=== PATIENT | male | born 1950 | race Caucasian/White ===

== ENCOUNTER 2023-05-10 10:48 | Inpatient (IN) | payer OTHER ==
[~2023-05-10] VITALS: Ht 175.3 cm; Wt 90.3 kg
[2023-05-10] MEDS ORDERED: PRAV20 PO (11:03)
[2023-05-10] MEDS ORDERED: Ventolin/Prove6.7 GM INH (11:04)
[2023-05-10] MEDS ORDERED: APAP500 MG PO (11:04)
[2023-05-10] MEDS ORDERED: FLUO60T (11:04)
[2023-05-10] MEDS ORDERED: TERA5 PO (11:05)
[2023-05-10] MEDS ORDERED: MAGNESIUM OXID500 MG PO (11:05)
[2023-05-10] MEDS ORDERED: Amlodipine Besy10 MG PO (11:05)
[2023-05-10 12:00] LABS: BASOPHILS ABSOLUTE AUTO 0.04 K/mm3 (0.00-0.23); BASOPHILS PERCENT AUTO 0 % (0-2); EOSINOPHILS ABSOLUTE AUTO 0.21 K/mm3 (0.00-0.68); EOSINOPHILS PERCENT AUTO 2 % (0-6); Hematocrit 41.3 % (37.0-53.0); Hemoglobin 13.3 g/dL (13.5-17.5); IMMATURE GRAN ABSOLUTE AUTO 0.06 K/mm3 (0.00-0.10); IMMATURE GRAN PERCENT AUTO 0 % (0-1); LYMPHOCYTES ABSOLUTE AUTO 1.07 K/mm3 (0.84-5.20); LYMPHOCYTES PERCENT AUTO 8 % (21-46); MONOCYTES ABSOLUTE AUTO 1.28 K/mm3 (0.16-1.47); MONOCYTES PERCENT AUTO 9 % (4-13); Mean Corpuscular HGB Conc 32.2 g/dL (31.5-36.5); Mean Corpuscular Volume 90 fL (80-100); Mean Platelet Volume 10.8 fL (9.1-12.4); NEUTROPHILS ABSOLUTE AUTO 11.32 K/mm3 (1.96-9.15); NEUTROPHILS PERCENT AUTO 81 % (41-73); Platelet Count 258 K/mm3 (150-400); RDW Coefficient Variation 13.2 % (11.7-14.2); RDW Standard Deviation 44.3 fL (35.1-46.3); Red Blood Cell Count 4.58 M/mm3 (4.30-5.90); White Blood Cell Count 13.98 K/mm3 (4.00-11.30)
[2023-05-10 12:07] LABS: Influenza A, PCR NEGATIVE (NEGATIVE); Influenza B, PCR NEGATIVE (NEGATIVE); Resp Syncytial Virus, PCR NEGATIVE (NEGATIVE); SARS-Cov-2 (COVID-19) PCR, MMC NEGATIVE (NEGATIVE)
[2023-05-10 12:17] LABS: Albumin, Blood 3.3 g/dL (3.4-5.0); Albumin/Globulin Ratio 0.8 (0.8-1.8); Bilirubin, Total 0.5 mg/dL (0.1-1.0); Bun/Creatinine Ratio 19.7 (12.0-20.0); Calcium, Blood 8.3 mg/dL (8.5-10.1); Creatinine, Blood 0.97 mg/dL (0.60-1.20); Globulin, Blood 4.1 g/dL (2.2-4.0); Potassium, Blood 4.2 mmol/L (3.5-5.5); Total Protein, Blood 7.4 g/dL (6.4-8.2)
[2023-05-10 16:04] VITALS: BP 150/69
--- NOTE | 2023-05-10 18:26 | NUR ---
ADMISSION NOTE: PATIENT ARRIVES IN ROOM AT AROUND 1603 FROM ER FOR DX OF COPD EXACERBATION. PATIENT A&OX3-4. PLEASANT AND COOPERATIVE c CARE. SLIGHTLY LETHARGIC, VERY SOB WHEN ANSWER TO QUESTIONS. SIGNIFICANT OTHER ANSWER THE MAJORITY OF ADMISSION QUESTIONS, RX AND HX. MEDRIC AND SKIN ASSESSMENT c 2 RN VERIFIERS DONE. PATIENT DENIES CP/PRESSURE, N/V AND GENERALIZED PAIN. ON TELE, SR HR IN THE HIGH 80'S BPM. LUNGS COARSE, RONCHI AND TIGHT T/O TO AUSCULTATIONS. PATIENT HAS NON PRODUCTIVE, HARSH, BARKING COUGH. ON 7L OF O2 VIA OXYMIZER c SPO2 RANGES 89-93%. PLUS 2 PITTING EDEMA TO BLE'S. PIV TO RAC SALINE LOCKED. RECEIVED SCHEDULED MEDS, BREATHING TX ADMINISTERED BY RT. BED ALARM ON FOR SAFETY. CALL LIGHT IN REACH. PATIENT AND SIG OTHER EDUCATED ON NON SMOKING POLICY, RISK OF INJURY AND IGNITION SOURCES WHEN O2 IN USE. PATIENT AND SIG OTHER DENIES SMOKING AND STATED UNDERSTANDING.
[2023-05-10 20:11] VITALS: BP 129/60
[2023-05-10 20:28] LABS: PCO2 Arterial 86.6 mmHg (35-45); PO2 Arterial 56.7 mmHg (80-100); pH Blood Arterial 7.17 (7.35-7.45)
[2023-05-10 21:18] VITALS: BP 120/50
--- NOTE | 2023-05-10 21:28 | NUR ---
LATE ENTRY: FROM START OF SHIFT, PT DYSPNEIC W/INCREASED WOB & SATS DROPPING TO THE LOW 80'S ON 7 L'S O2 VIA OXIDIZER N/C. PLACED CALL TO RT, HERE IMMEDIATELY TO GIVE PT TREATMENT. PT ATTEMPTING TO GET OOB, THROWING LEGS OVER RAILING TO STAND TO URINATE. WITH STAF X 3, PT PUT BACK IN BED, PROVIDED URINAL. PT STATES HE "CAN NOT PEE UNLESS I'M STANDING". WITH ATTEMPT TO GET OOB PT'S SATS FELL INTO THE 70'S. RT PLACED PT ON BIPAP. PLACED CALL TO MD INFORMED OF ABOVE, ORDERS RECEIVED FOR F/C, BIPAP & ABG'S. 14 FR F/C PLACED EASILY WITH APPROX 400CCS OF DARK YELLOW URINE VISUALIZED IN TUBING. SECURED WITH STAT LOCK. ABG'S DRAWN BY RT, RESULTS: BASE EXCESS 2.3, PH 7.17,CO2 86.6 & ARTERIAL O2 56.7. MD NOTIFIED OF ABG RESULTS, ORDERS RECIEVED TO TRANSFER PT TO U1. CALLED REPORT TO SHWETA BARNETT AND PT TRANSFERRED VIA BED WITH ALL PERSONAL BELONGINGS, CHART & MEDS TO PCU 1. PT TRANSFERRED WITH RN, FULL STACK SOFTWARE DEVELOPER & RT.
--- NOTE | 2023-05-10 21:30 | NUR ---
FAMILY NOTIFICATION CALLED PT'S SON PER MEDICAL RECORD AND PROVIDED AN UPDATE R/T TRANSFER TO PCU AND PLAN FOR BIPAP WITH REPEAT ABG'S THIS SHIFT. PT'S SON (RIC) EXPRESSED APPRECIATION AND UNDERSTANDING AND STATED A PLAN TO DRIVE FROM [place] IN THE AM. PRIMARY RN SHWETA UPDATED THAT CALL HAD BEEN MADE.
[2023-05-10 21:37] LABS: Source, Urine Foley catheter
[2023-05-10 21:44] LABS: Bilirubin, Urine Neg (Neg); Blood, Urine Neg (Neg); Glucose Qualitative, Urine 2+ (Neg); Ketones, Urine Neg (Neg); Leukocyte Esterase, Urine Neg (Neg); Nitrite, Urine Neg (Neg); Protein, Urine 3+ (Neg); Specific Gravity, Urine 1.025 (1.003-1.022); Urobilinogen, Urine NORM (Normal)
[2023-05-10 21:58] LABS: Appearance, Urine Clear (Clear); Color, Urine Yellow (P-Yellow)
[2023-05-10 22:01] LABS: Bacteria Not Seen /hpf; Red Blood Cells, Urine Not Seen /hpf (0-2); Squamous Epithelial Cells Rare /hpf (Few); White Blood Cells, Urine 0-2 /hpf (0-5)
[2023-05-10 23:18] LABS: PO2 Arterial 72.3 mmHg (80-100)
[2023-05-10 23:20] LABS: pH Blood Arterial 7.15 (7.35-7.45)
[2023-05-10 23:43] VITALS: BP 129/60
[2023-05-11 00:07] LABS: PO2 Arterial 66.3 mmHg (80-100)
[2023-05-11 00:08] LABS: pH Blood Arterial 7.22 (7.35-7.45)
[2023-05-11 00:09] LABS: PCO2 Arterial 70.2 mmHg (35-45)
--- NOTE | 2023-05-11 00:30 | NUR ---
COMMUNICATION WITH FAMILY RECEIVED PHONE CALL FROM PT'S DAUGHTER (INGRID). ADVISED THAT THERE IS NO CONSENT IN THE CHART TO PROVIDE INFORMATION AT THIS TIME BUT THAT SHE WOULD BE ABLE TO RECEIVE UPDATES FROM HER BROTHER (RIC). SHE WAS AGREEABLE TO THIS PLAN. PROVIDED HER PHONE NUMBER IN CASE HER DAD WOULD BE ABLE TO CALL ON THE PHONE AND WOULD LIKE TO REACH HER: [phone] (CELL). HER PARTNER CHUY'S # IS: [phone]. PLACED ON THE CHART AND NOTIFIED THE PRIMARY RN ALESHIA.
[2023-05-11 03:12] VITALS: BP 144/72
[2023-05-11 03:17] LABS: PCO2 Arterial 68.8 mmHg (35-45); pH Blood Arterial 7.24 (7.35-7.45)
[2023-05-11 04:14] LABS: Hematocrit 40.2 % (37.0-53.0); Hemoglobin 12.4 g/dL (13.5-17.5); Mean Corpuscular HGB 28.5 pg (26.0-34.0); Mean Corpuscular HGB Conc 30.8 g/dL (31.5-36.5); Mean Corpuscular Volume 92 fL (80-100); Mean Platelet Volume 11.1 fL (9.1-12.4); Platelet Count 256 K/mm3 (150-400); RDW Coefficient Variation 13.2 % (11.7-14.2); RDW Standard Deviation 45.1 fL (35.1-46.3); Red Blood Cell Count 4.35 M/mm3 (4.30-5.90)
[2023-05-11 04:45] LABS: Albumin/Globulin Ratio 0.7 (0.8-1.8); Bilirubin, Total 0.3 mg/dL (0.1-1.0); Bun/Creatinine Ratio 20.4 (12.0-20.0); Calcium, Blood 8.4 mg/dL (8.5-10.1); Creatinine, Blood 1.13 mg/dL (0.60-1.20); Globulin, Blood 4.1 g/dL (2.2-4.0); Magnesium, Blood 2.1 mg/dL (1.6-2.4); Potassium, Blood 5.3 mmol/L (3.5-5.5); Total Protein, Blood 7.1 g/dL (6.4-8.2)
--- NOTE | 2023-05-11 06:46 | NUR ---
SHIFT SUMMARY PATIENT TRANSFERRED TO PCU 01 FROM [facility] FOR INCREASED O2 NEEDS AND WORK OF BREATHING. MOST RECENT ABG pH CRITICALLY LOW AT 7.24, CO2 68.8. PATIENT PLACED ON BIPAP, SETTINGS CURRENTLY 29/09 AT 55% FIO2. LUNG SOUNDS RONCHUS THROUGHOUT AND PATIENT TACHYPNIC. PATIENT IS LETHARGIC, DIFFICULT TO ASSESS PATIENT'S ORIENTATION LEVEL. VITAL SIGNS STABLE. PATIENT ASSESSED FOR IGNITION RISK. WILL CONTINUE TO MONITOR. CALL LIGHT WITHIN REACH.
[2023-05-11 07:28] VITALS: BP 143/64
--- NOTE | 2023-05-11 10:28 | NUR ---
FIRE IGNITION RISK ASSESSMENT PT ASSESSED FOR SMOKING AND FIRE IGNINTION RISK DEVEICES. PT REPORTS THAT HE IS A CURRENT SMOKER BUT ALSO REPORTED THAT HE DOES NOT HAVE ANY LIGHTERS OR IGNITION RISK DEVICES. PT REMINDED THAT [facility] IS A SMOKE FREE FACILITY AND THAT ANY VISITORS NEED TO LEAVE IGNITION RISK DEVICES IN THEIR VEHICLE. PT AGREED.
--- NOTE | 2023-05-11 10:57 | NUR ---
0900 PT TAKEN OFF OF BIPAP FOR MEDS AND 6L OXYMIZER APPLIED. PT RR AT 24, PT INSTRUCTED TO SLOW BREATHING AND TAKE DEEP BREATHS IN HIS NOSE AND OUT HIS MOUTH. PT SATS IN MID 80'S. PT SATS GRADUALLY INCREASED PT RR DECREASED. O2 INCREASED TO 8L. SATS IN THE LOW 90'S. PT REPORTS "IT IS EASIER SAID THAN DONE" REFFERING TO SLOWING HIS BREATHING. PT SATS REMAINING IN THE 90'S ON 8L OXYMIZER.
[2023-05-11 11:38] VITALS: BP 124/77
--- NOTE | 2023-05-11 12:26 | NUR ---
1000 PT SON AND DAUGHTER TO VISIT. SON INFORMED THIS RN THAT PT "IS A DRINKER. NEVER DOES NOT HAVE A BUDWIESER IN HIS HAND." SON EXPRESSED CONCERNS OF WITHDRAWLS. PT ASKED ABOUT DRINKING HABIT, PT REPORTS "I DO NOT DRINK ANYMORE. I TAKE THAT BACK, I HAVE A GLASS OF WINE HERE AND THERE." INFORMED, VIT B COMPLEX ORDERED.
--- NOTE | 2023-05-11 12:29 | NUR ---
PT CURRENTLY SITTING AT EDGE OF BED ON 8L OXYMIZER. SATS AT 94%. BIPAP ON STANBY. NO REPORT OF SOB AT THIS TIME. PT RR AT 18 AT THIS TIME. PT HAS FREQUENT COUGHING FITS. PT STATES THAT THE COUGHS ARE NORMAL FOR HIM.
--- NOTE | 2023-05-11 15:31 | NUR ---
1400 PT SATS AT 100% ON 8L OXYMIZER. PT O2 TITRATED TO 6L, SATS REMAIN STABLE IN 90'S. PT CONTINUES TO SIT AT EDGE OF BED, TOLERATING WELL.
[2023-05-11 17:12] VITALS: BP 120/106
--- NOTE | 2023-05-11 17:12 | NUR ---
SHIFT SUMMARY PT A/OX4 AND COOPERATIVE OF CARE. PT ABLE TO EXPRESS NEEDS AND CALLS APPROPIATE. PT ON BIPAP 29/09 50% AT SHIFT CHANGE THIS AM. PT PUT ON 8L OXYMIZER AT AROUND 0900 FOR PO MEDSAND TO GIVE PT A BREAK FROM BIPAP. PT TACHYPNEIC WHEN ON OXYMIZER AND SATS GRADUALLY INCREASED FROM 80'S TO 90'S WHEN O2 WAS INCREASED TO 8L AND PT INSTRUCTED TO SLOW BREATH AND DEEP BREATH. PT REMAINED ON 6-8L PXYMIZER THROUGHOUT SHIFT WHILE SITTING AT EOB. OTHER VSS THROUGHOUT SHIFT. PT REQUESTED NICOTINE PATCH, PATCH APPLIED PER ORDERS. WARNER REMAINED IN PLACE DRAINING TO GRAVITY, KOMAL URINE. NO REPORT OF CHEST PAIN/PRESSURE THROUGHOUT SHIFT. WHEN ASKED IF PT IS SOB HE RESPONDS "THAT IS HARD TO TELL SINCE I HAVE BEEN DEALING WITH THIS FOR A LONG TIME."
[2023-05-11 19:36] VITALS: BP 126/70
[2023-05-11 23:34] VITALS: BP 122/65
[2023-05-12 03:39] LABS: Hematocrit 38.9 % (37.0-53.0); Hemoglobin 12.2 g/dL (13.5-17.5); Mean Corpuscular HGB Conc 31.4 g/dL (31.5-36.5); Mean Corpuscular Volume 93 fL (80-100); Platelet Count 250 K/mm3 (150-400); RDW Coefficient Variation 13.2 % (11.7-14.2); RDW Standard Deviation 44.9 fL (35.1-46.3); White Blood Cell Count 17.02 K/mm3 (4.00-11.30)
[2023-05-12 04:42] LABS: Albumin/Globulin Ratio 0.8 (0.8-1.8); Bilirubin, Total 0.2 mg/dL (0.1-1.0); Bun/Creatinine Ratio 27.9 (12.0-20.0); Calcium, Blood 8.2 mg/dL (8.5-10.1); Creatinine, Blood 1.11 mg/dL (0.60-1.20); Potassium, Blood 5.1 mmol/L (3.5-5.5)
[2023-05-12 04:48] VITALS: BP 120/62
--- NOTE | 2023-05-12 05:26 | NUR ---
SHIFT SUMMARY A/OX3, FORGETFUL AT TIMES. COOPERATIVE WITH CARE. TELE SR 70-90S, DENIES CHEST PAIN/PRESSURE. PT COMPLIANT WITH BIPAP MOST OF THE NIGHT 27/09 30%, CURRENTLY SITTING UP AT EDGE OF BED ON 7L OXYMIZER. VSS, NO ACUTE CHANGES AT THIS TIME. BED IN LOWEST POSITION WITH CALL LIGHT IN REACH. WILL CONTINUE TO MONITOR AND REPORT TO ONCOMING RN.
[2023-05-12 07:13] VITALS: BP 141/87
[2023-05-12 10:59] VITALS: BP 121/84
[2023-05-12 15:29] VITALS: BP 129/78
--- NOTE | 2023-05-12 17:34 | NUR ---
SHIFT SUMMARY PT IS ALERT AND ORIENTED X 4, HE IS ABLE TO MAKE HIS NEEDS KNOWN AND IS PLEASANT/COOPERATIVE W/ CARE. SPO2 MAINTAINED 90-95% VIA OXIMIZER 7L WHILE AWAKE WELL BIPAP W/ PRESSURES OF 22/12 30% FIO2 WHILE SLEEPING, PT HAS BEEN ENCOURAGED TO WEAR BIPAP WHILE SLEEPING. HR AND BP STABLE. HE DENIED FEELINGS OF PAIN DURING SHIFT BUT REPORTS FEELING RATHER SOB. OCCASSIONAL PRODUCTIVE COUGH NOTED. WARNER CATHETER IS IN PLACE AND DRAINING TO GRAVITY, HX OF BPH NOTED. PT IS ABLE TO SHIFT INDEPENDENTLY IN BED AND HAS SAT UP AT EDGE OF BED FOR MAJORITY OF SHIFT. HE HAD SIGNIGICANT OTHER RENEE AT BEDSIDE TODAY. PT IS NOW AT EDGE OF BED EATING DINNER. CALL LIGHT IS W/IN REACH.
[2023-05-12 19:49] VITALS: BP 145/53
[2023-05-12 23:09] VITALS: BP 118/59
[2023-05-13 03:41] VITALS: BP 135/72
[2023-05-13 04:16] LABS: BASOPHILS ABSOLUTE AUTO 0.01 K/mm3 (0.00-0.23); BASOPHILS PERCENT AUTO 0 % (0-2); EOSINOPHILS PERCENT AUTO 0 % (0-6); Hematocrit 38.8 % (37.0-53.0); Hemoglobin 12.1 g/dL (13.5-17.5); IMMATURE GRAN ABSOLUTE AUTO 0.15 K/mm3 (0.00-0.10); IMMATURE GRAN PERCENT AUTO 1 % (0-1); LYMPHOCYTES ABSOLUTE AUTO 0.49 K/mm3 (0.84-5.20); LYMPHOCYTES PERCENT AUTO 3 % (21-46); MONOCYTES ABSOLUTE AUTO 0.89 K/mm3 (0.16-1.47); MONOCYTES PERCENT AUTO 6 % (4-13); Mean Corpuscular HGB 28.5 pg (26.0-34.0); Mean Corpuscular HGB Conc 31.2 g/dL (31.5-36.5); Mean Corpuscular Volume 92 fL (80-100); Mean Platelet Volume 10.9 fL (9.1-12.4); NEUTROPHILS ABSOLUTE AUTO 13.12 K/mm3 (1.96-9.15); NEUTROPHILS PERCENT AUTO 90 % (41-73); Platelet Count 255 K/mm3 (150-400); RDW Coefficient Variation 13.2 % (11.7-14.2); RDW Standard Deviation 43.8 fL (35.1-46.3); Red Blood Cell Count 4.24 M/mm3 (4.30-5.90); White Blood Cell Count 14.66 K/mm3 (4.00-11.30)
[2023-05-13 04:43] LABS: Bun/Creatinine Ratio 35.1 (12.0-20.0); Calcium, Blood 8.3 mg/dL (8.5-10.1); Creatinine, Blood 1.14 mg/dL (0.60-1.20); Potassium, Blood 4.7 mmol/L (3.5-5.5)
--- NOTE | 2023-05-13 05:05 | NUR ---
SHIFT SUMMARY A/Ox4 AND COOPERATIVE WITH CARE. ABLE TO ANSWER QUESTIONS APPROPRIATELY AND ABLE TO MAKE HIS NEEDS KNOWN. NO ACUTE EVENTS OVERNIGHT FOR PT WAS ABLE TO SLEEP T/O MOST OF THE SHIFT. CARDIAC, REMAINS IN SR W/INTERMITTENT PVC S, NO REPORTS OF ANY CP OR PRESSURE T/O THE NIGHT. SBP HAS REMAINED STABLE RANGING IN 110-140'S. RESPIRATORY, MAINTAINS SPO2 >90% ON 5-7L VIA OXYMIZER. USED THE BIPAP T/O MOST OF THE NIGHT WITH 12/8 FIO2 40%. PRN ATIVAN TO HELP MANAGE PT S ANXIETY WITH BIPAP. CONTINUES TO HAVE INSPIRATORY/COA WHEEZES IN MOST LUNG BAH HOWEVER. EXPERIENCES EPISODES OF DYSPNEA W/MINIMAL EXERTION WELL. GI/, WARNER CATH PATENT AND DRAINING YELLOW URINE TO GRAVITY. NO BM FOR ME THIS SHIFT, BUT IS 1A TO BSC. ASSESSED PT FOR RISKS OF ANY IGNITION SOURCES WELL BEHAVIORS FOR INCREASED RISKS OF FIRE DANGER. PT EDUCATED ON COMMON SOURCES OF IGNITION WELL NEED TO KEEP A SAFE ENVIRONMENT. PT VOICED UNDERSTANDING. NO NEW ORDERS AT THIS TIME, WILL REPORT TO ONCOMING RN. EMELY PINZON OF THIS NOTE.
[2023-05-13 07:15] VITALS: BP 129/70
[2023-05-13 09:14] LABS: Base Excess Venous 7.4 mmol/L; PCO2 Venous 73.3 mmHg (38-42)
[2023-05-13 09:15] LABS: pH Blood Venous 7.28 (7.34-7.37)
--- NOTE | 2023-05-13 09:26 | NUR ---
CRITICAL VALUE NOTIFICATION CALL PLACED TO DR. LEVY REGARDING VBG PH, VSS REMAIAN STABLE. PT ENCOURAGED TO BE PLACED ON BIPAP AND PT STATED WHEN HE IS DONE WITH HIS COFFEE HE AGREES TO WEAR BIPAP.
[2023-05-13 11:43] VITALS: BP 127/64
[2023-05-13 16:11] VITALS: BP 126/65
--- NOTE | 2023-05-13 16:56 | NUR ---
SHIFT SUMMARY PT IS ALERT AND ORIENTED X 4, HE IS PLEASANT AND COOPERATIVE W/ CARE. BP AND HR STABLE, SPO2 MAINTAINED 90-95% VIA 2L NC OR BIPAP W/ PRESSURES 13/8 35% FIO2. PT REPORTED DIFFICULTY WEARING BIPAP FOR LONG DURATIONS DUE TO FEELINGS OF ANXIETY, PLEASE SEE EMAR FOR ANXIETY MANAGEMENT. HE DENIED FEELINGS OF CHEST PAIN/PRESSURE, HE REPORTS FEELING SOB W/ EXERTION, HE DENIES FEELING LIGHTHEADED/DIZZY. OCCASSIONAL PRODUCTIVE COUGH NOTED. PHYSICAL/OCCUPATIONAL THERAPIST EVALUATED PT DURING SHIFT AND RECOMMEND THAT HE AMBULATES TO BATHROOM. WARNER CATHETER IS IN PLACE AND DRAINING TO GRAVITY LIGHT YELLOW OUTPUT. DR. LEVY REQUESTED CATHETER REMAINS IN PLACE FOR STRICT I & O'S. PT HAD SIGNIFICANT OTHER SOSA AT BEDSIDE DURING SHIFT. HE SAT IN RECLINER CHAIR W/ FEET ELEVATED OR AT EDGE OF BED FOR MAJORITY OF SHIFT. PT NOW ON PERSONAL COMPUTER AT EDGE OF BED. CALL [facility] W/IN REACH.
[2023-05-13 19:22] VITALS: BP 127/62
[2023-05-13 23:30] VITALS: BP 120/67
[2023-05-14 03:40] VITALS: BP 152/69
[2023-05-14 04:08] LABS: BASOPHILS ABSOLUTE AUTO 0.02 K/mm3 (0.00-0.23); BASOPHILS PERCENT AUTO 0 % (0-2); EOSINOPHILS PERCENT AUTO 0 % (0-6); Hematocrit 39.7 % (37.0-53.0); Hemoglobin 12.4 g/dL (13.5-17.5); IMMATURE GRAN ABSOLUTE AUTO 0.14 K/mm3 (0.00-0.10); IMMATURE GRAN PERCENT AUTO 1 % (0-1); LYMPHOCYTES ABSOLUTE AUTO 0.42 K/mm3 (0.84-5.20); LYMPHOCYTES PERCENT AUTO 3 % (21-46); MONOCYTES ABSOLUTE AUTO 0.84 K/mm3 (0.16-1.47); MONOCYTES PERCENT AUTO 6 % (4-13); Mean Corpuscular HGB 28.5 pg (26.0-34.0); Mean Corpuscular HGB Conc 31.2 g/dL (31.5-36.5); Mean Corpuscular Volume 91 fL (80-100); Mean Platelet Volume 10.8 fL (9.1-12.4); NEUTROPHILS ABSOLUTE AUTO 12.37 K/mm3 (1.96-9.15); NEUTROPHILS PERCENT AUTO 90 % (41-73); Platelet Count 250 K/mm3 (150-400); RDW Coefficient Variation 13.2 % (11.7-14.2); RDW Standard Deviation 43.9 fL (35.1-46.3); Red Blood Cell Count 4.35 M/mm3 (4.30-5.90); White Blood Cell Count 13.79 K/mm3 (4.00-11.30)
[2023-05-14 04:24] LABS: Bun/Creatinine Ratio 38.9 (12.0-20.0); Calcium, Blood 8.1 mg/dL (8.5-10.1); Creatinine, Blood 1.26 mg/dL (0.60-1.20); Potassium, Blood 4.7 mmol/L (3.5-5.5)
--- NOTE | 2023-05-14 05:10 | NUR ---
SHIFT SUMMARY A/Ox4 AND COOPERATIVE WITH CARE. ABLE TO ANSWER QUESTIONS APPROPRIATELY AND ABLE TO MAKE HIS NEEDS KNOWN. NO ACUTE EVENTS OVERNIGHT, BUT PT HAD A HARD TIME SLEEPING LAST NIGHT. CARDIAC, REMAINS IN SR-ST 80-100'S W/INTERMITTENT PVC'S, NO REPORTS OF ANY CP OR PRESSURE T/O THE NIGHT. SBP HAS REMAINED STABLE RANGING IN 120-150 S. RESPIRATORY, MAINTAINS SPO2 >90% ON 2-4L VIA HIGH FLOW NC. USED THE BIPAP OFF AND ON T/O THE NIGHT. PT STRUGGLES TO TOLERATE BIPAP DUE TO ANXIETY. PRN ATIVAN USED PER EMAR WITH GOOD EFFECT. BIPAP 12/8 FIO2 35%. CONTINUES TO HAVE INSPIRATORY/COA WHEEZES IN MOST LUNG BAH. CONTINUES TO EXPERIENCE EPISODES OF DYSPNEA W/MINIMAL EXERTION WELL. GI/, WARNER CATH PATENT AND DRAINING YELLOW URINE TO GRAVITY. BM REPORTED DURING PREVIOUS SHIFT. ABLE TO TRANSFER WELL WITH 1 STAFF ASSIST. ASSESSED PT FOR RISKS OF ANY IGNITION SOURCES WELL BEHAVIORS FOR INCREASED RISKS OF FIRE DANGER. PT EDUCATED ON COMMON SOURCES OF IGNITION WELL NEED TO KEEP A SAFE ENVIRONMENT. PT VOICED UNDERSTANDING. NO NEW ORDERS AT THIS TIME, WILL REPORT TO ONCOMING RN. EMELY PINZON OF THIS NOTE.
[2023-05-14 07:48] VITALS: BP 156/84
[2023-05-14 08:57] LABS: Base Excess Venous 11.3 mmol/L; Bicarbonate Venous 31.9 mmol/L (24.0-30.0); PCO2 Venous 72.2 mmHg (38-42); pH Blood Venous 7.32 (7.34-7.37)
[2023-05-14 11:38] VITALS: BP 156/88
[2023-05-14 15:32] VITALS: BP 155/77
--- NOTE | 2023-05-14 19:03 | NUR ---
PT SUMMARY: PT REFUSED TO WEAR CPAP TODAY PROVIDER AWARE, PT WAS EDUCATED ABOUT CPAP USE PT KEEPS TAKING O2 OFF WHEN SLEEPING AND PT DESATS TO 80'S ALSO WITH COUGHING SPITS PT WAS EVEN OFFERED ATIVAN PT STILL REFUSED ALWAYS REQUESTING TO BE LEFT ALONE TO GIVE SELF SOME TIME TO RECOVER REPEAT VBG PH WAS AT 7.32 CO2 STILL HIGH ON THE 70'S, PT HAS BEEN ON 4L OF O2 ALL SHIFT. HRR SR/ST 90-100'S, SBP'S 150'S, AFEBRILE. PT ABLE TO WORK WITH PT/OT, SBA FOR TRANSFERS TO RECLINER, ALSO ABLE TO AMBUALTE TO THE BATHROOM PER REPORT WITH DESATS EPISODES. PT HAS BEEN C/O NOT BEING ABLE TO SLEEP, PT STARTED ON TRAZADONE FOR TONIGHT. PT WITH GOOD APPETITE, EATING AND DRINKING WITH NO ISSUES. PT HAS BEEN CALLING APPROPRIATELY. OFFERED BED BATH TODAY ONLY REQUESTED SHOWER CAP. PT NOW IN BED RESTING, CALL LIGHTS IN REACH WILL REPORT TO ONCOMING SHIFT
[2023-05-14 19:44] VITALS: BP 131/69
[2023-05-15] VITALS (8 sets, daily range): BP systolic 107–155; BP diastolic 59–80
[2023-05-15 03:07] LABS: BASOPHILS ABSOLUTE AUTO 0.01 K/mm3 (0.00-0.23); BASOPHILS PERCENT AUTO 0 % (0-2); EOSINOPHILS PERCENT AUTO 0 % (0-6); Hematocrit 38.9 % (37.0-53.0); Hemoglobin 12.3 g/dL (13.5-17.5); IMMATURE GRAN ABSOLUTE AUTO 0.15 K/mm3 (0.00-0.10); IMMATURE GRAN PERCENT AUTO 1 % (0-1); LYMPHOCYTES ABSOLUTE AUTO 0.42 K/mm3 (0.84-5.20); LYMPHOCYTES PERCENT AUTO 3 % (21-46); MONOCYTES ABSOLUTE AUTO 1.09 K/mm3 (0.16-1.47); MONOCYTES PERCENT AUTO 8 % (4-13); Mean Corpuscular HGB 28.8 pg (26.0-34.0); Mean Corpuscular HGB Conc 31.6 g/dL (31.5-36.5); Mean Corpuscular Volume 91 fL (80-100); Mean Platelet Volume 10.8 fL (9.1-12.4); NEUTROPHILS ABSOLUTE AUTO 11.73 K/mm3 (1.96-9.15); NEUTROPHILS PERCENT AUTO 88 % (41-73); Platelet Count 243 K/mm3 (150-400); RDW Coefficient Variation 13.2 % (11.7-14.2); RDW Standard Deviation 43.7 fL (35.1-46.3); Red Blood Cell Count 4.27 M/mm3 (4.30-5.90)
[2023-05-15 03:32] LABS: Albumin, Blood 3.3 g/dL (3.4-5.0); Albumin/Globulin Ratio 0.9 (0.8-1.8); Bilirubin, Total 0.3 mg/dL (0.1-1.0); Bun/Creatinine Ratio 42.1 (12.0-20.0); Calcium, Blood 8.2 mg/dL (8.5-10.1); Creatinine, Blood 1.21 mg/dL (0.60-1.20); Globulin, Blood 3.5 g/dL (2.2-4.0); Potassium, Blood 4.7 mmol/L (3.5-5.5); Total Protein, Blood 6.8 g/dL (6.4-8.2)
--- NOTE | 2023-05-15 05:29 | NUR ---
SHIFT SUMMARY A/Ox4 AND COOPERATIVE WITH CARE. ABLE TO ANSWER QUESTIONS APPROPRIATELY AND ABLE TO MAKE HIS NEEDS KNOWN. NO ACUTE EVENTS OVERNIGHT, BUT PT HAD A HARD TIME SLEEPING LAST NIGHT. CARDIAC, REMAINS IN SR-ST 80-100'S W/INTERMITTENT PVC S, NO REPORTS OF ANY CP OR PRESSURE T/O THE NIGHT. SBP HAS REMAINED STABLE RANGING IN 130-140'S. RESPIRATORY, MAINTAINS SPO2 >90% ON 3-7L VIA HIGH FLOW NC. BRIEFLY USED BIPAP WITH MODIFIED MASK PROVIDED BY RT FOR PT'S COMFORT. PT DID NOT TOLERATE BIPAP FOR VERY LONG EVEN WITH PRN ANXIETY MEDICATION. BIPAP SETTINGS TIRATED TO 12/8 FIO2 40% BY RT. ATTEMPTED AT VARIOUS POINTS T/O THE NIGHT TO PUT PT BACK ON BIPAP, BUT PT CONTINUED TO REFUSE. PT EDUCATED ON NEED FOR BIPAP TO HELP CORRECT VBG GAS LEVELS WITH NO SUCCESS. CONTINUES TO HAVE INSPIRATORY/COA WHEEZES IN MOST LUNG BAH WELL INTERMITTENT DRY COUGHING FITS. CONTINUES TO EXPERIENCE EPISODES OF DYSPNEA W/MINIMAL EXERTION WELL. GI/, WARNER CATH PATENT AND DRAINING YELLOW URINE TO GRAVITY. NO BM THIS SHIFT BUT ABD REMAINS SOFT AND NONTENDER. BS PRESENT IN ALL QUADRANTS. ABLE TO TRANSFER WELL WITH 1 STAFF ASSIST. ASSESSED PT FOR RISKS OF ANY IGNITION SOURCES WELL BEHAVIORS FOR INCREASED RISKS OF FIRE DANGER. PT EDUCATED ON COMMON SOURCES OF IGNITION WELL NEED TO KEEP A SAFE ENVIRONMENT. PT VOICED UNDERSTANDING. NO NEW ORDERS AT THIS TIME, WILL REPORT TO ONCOMING RN. EMELY PINZON OF THIS NOTE.
--- NOTE | 2023-05-15 16:16 | NUR ---
Met with pt this morning at bedside, he was sitting up in a chair. Noted he is alert and oriented, pleasant and cooperative with care. He states he lives with a "wood finisher apprentice" named Vanessa. He has a DNR code status, states he put it in place years ago. Agreeable to visit tomorrow as he is about to work with RT and awaiting order picker for x-ray.
--- NOTE | 2023-05-15 17:53 | NUR ---
PT SUMMARY: PT WAS ABLE TO TOLERATE BIPAP MASK ON FOR 30 MINS, PT WAS GIVEN ATIVAN PO PER REQUESTS. PER DR LEVY IF PT CONTINUES TO REFUSE BIPAP MASK TONIGHT OKAY TO PULL IT OUT FROM THE ROOM BY TOMORROW, PT WAS ENCOURAGED AND WOULD LIKE TO WEAR IT FOR SHORT PERIODS OF TIME. PT HAS BEEN COOPERATIVE WITH CARES, HAD SHOWER TODAY AMBULATED VIA WALKER, ALSO HAD A BOWEL MOVEMENT. DR LEVY WOULD LIKE TO KEEP AWRNER IN PLACE FOR NOW PT WAS STILL DIURESING TO MONITOR STRICT I&O'S. VITALS HRR ST 100'S, O2 DEMAND HAS INCREASED TO 6L TODAY PT STILL HAVE COUGHING SPITS STILL DESATS TO LOW 80'S WITH SLOW RECOVERY REPEAT CXR WAS DONE TODAY ACTUALLY SHOWED IMPROVED FOR LAST CXR, BREATHING TX PER RT. PT WORKED WITH PT/OT TODAY WAS TOLD BY OT THAT PT DOESNT WANT ANY AGGRESSIVE THERAPY WOULD WANT TO GO HOME AND TAKE CARE OF STUFFS AND AFFAIRS, PALLIATIVE CARE WAS CALLED AND WAS GIVEN UPDATE, TO FOLLOW-UP IN AM PER LISE BARNETT. PT CURRENTLY IN BED NOW RESTING CALL LIGHTS IN REACH WILL REPORT TO ONCOMING SHIFT
--- NOTE | 2023-05-15 21:11 | NUR ---
SAFETY & EDUCATION PT & FAMILY EDUCATED RE: IGNITION SOURCES AND RISK OF INJURY WHILE OXYGEN IS IN USE. PT DENIES SMOKING & PT AND FAMILY VERBALIZE UNDERSTANDING.
[2023-05-16] VITALS (7 sets, daily range): BP systolic 121–157; BP diastolic 48–83
[2023-05-16 04:34] LABS: BASOPHILS ABSOLUTE AUTO 0.02 K/mm3 (0.00-0.23); BASOPHILS PERCENT AUTO 0 % (0-2); EOSINOPHILS PERCENT AUTO 0 % (0-6); Hematocrit 42.2 % (37.0-53.0); Hemoglobin 13.1 g/dL (13.5-17.5); IMMATURE GRAN PERCENT AUTO 2 % (0-1); LYMPHOCYTES ABSOLUTE AUTO 0.35 K/mm3 (0.84-5.20); LYMPHOCYTES PERCENT AUTO 3 % (21-46); MONOCYTES ABSOLUTE AUTO 1.06 K/mm3 (0.16-1.47); MONOCYTES PERCENT AUTO 8 % (4-13); Mean Corpuscular HGB 28.6 pg (26.0-34.0); Mean Corpuscular Volume 92 fL (80-100); Mean Platelet Volume 11.2 fL (9.1-12.4); NEUTROPHILS ABSOLUTE AUTO 11.41 K/mm3 (1.96-9.15); NEUTROPHILS PERCENT AUTO 88 % (41-73); Platelet Count 249 K/mm3 (150-400); RDW Coefficient Variation 13.1 % (11.7-14.2); RDW Standard Deviation 43.9 fL (35.1-46.3); Red Blood Cell Count 4.58 M/mm3 (4.30-5.90); White Blood Cell Count 13.04 K/mm3 (4.00-11.30)
--- NOTE | 2023-05-16 04:37 | NUR ---
SHIFT SUMMARY SEE PREVIOUS NOTE. PT A&Ox4, CALLS AND COMMUNICATES NEEDS APPROPRIATELY. PT HAD TWO EPISODES OF WAKING UP CONFUSED, THOUGH WAS EASY TO REORIENT. BP STABLE, SR-ST 80-100, DENIES CP/PRESSURE. SpO2> 92% 5-11L VIA NC, DENIES SOB. PT REFUSED TO WEAR BIPAP THROUGOUT NIGHT. PT SBA FOR TRANSFERS. WARNER CATHETER PATENT, DRAINING TO GRAVITY. NO OTHER EVENTS, WILL REPORT TO ONCOMING RN.
[2023-05-16 04:52] LABS: Albumin, Blood 3.2 g/dL (3.4-5.0); Albumin/Globulin Ratio 0.9 (0.8-1.8); Bilirubin, Total 0.3 mg/dL (0.1-1.0); Bun/Creatinine Ratio 40.4 (12.0-20.0); Calcium, Blood 8.4 mg/dL (8.5-10.1); Creatinine, Blood 1.04 mg/dL (0.60-1.20); Globulin, Blood 3.5 g/dL (2.2-4.0); Potassium, Blood 4.9 mmol/L (3.5-5.5); Total Protein, Blood 6.7 g/dL (6.4-8.2)
[2023-05-16 09:23] LABS: Base Excess Venous 16.4 mmol/L; Bicarbonate Venous 35.8 mmol/L (24.0-30.0); PCO2 Venous 82.7 mmHg (38-42); pH Blood Venous 7.32 (7.34-7.37)
--- NOTE | 2023-05-16 18:00 | NUR ---
SHIFT SUMMARY ALERT, ORIENTED, COOPERATIVE. TOLERATES O2 AT 7L VIA NC. REFUSES BIPAP--REMOVED FROM ROOM BY RT. VBG CHECKED THIS SHIFT AND VALUES ARE WORSE, SEE LABS. PRODUCTIVE COUGH AND SOB WITH EXERTION. SR-ST ON TELE. SBA TO BATHROOM AND RECLINER. SITS UP FOR ALL MEALS. TOLERATING FLUID RESTRICTION OF 1500 ML/24 HR. REPORTS WARNER UNCOMFORTABLE, ORDERED TO CONTINUE FOR STRICT INPUT AND OUTPUT PER DR LEVY. GOAL IS TO WEAN O2 TO 5L OR LESS FOR 24 HOURS BEFORE STATUS CHANGE.
[2023-05-17 04:05] VITALS: BP 147/81
[2023-05-17 04:20] LABS: BASOPHILS ABSOLUTE AUTO 0.03 K/mm3 (0.00-0.23); BASOPHILS PERCENT AUTO 0 % (0-2); EOSINOPHILS PERCENT AUTO 0 % (0-6); Hematocrit 42.4 % (37.0-53.0); Hemoglobin 13.6 g/dL (13.5-17.5); IMMATURE GRAN ABSOLUTE AUTO 0.25 K/mm3 (0.00-0.10); IMMATURE GRAN PERCENT AUTO 2 % (0-1); LYMPHOCYTES ABSOLUTE AUTO 0.47 K/mm3 (0.84-5.20); LYMPHOCYTES PERCENT AUTO 3 % (21-46); MONOCYTES ABSOLUTE AUTO 1.36 K/mm3 (0.16-1.47); MONOCYTES PERCENT AUTO 8 % (4-13); Mean Corpuscular HGB Conc 32.1 g/dL (31.5-36.5); Mean Corpuscular Volume 90 fL (80-100); NEUTROPHILS ABSOLUTE AUTO 13.99 K/mm3 (1.96-9.15); NEUTROPHILS PERCENT AUTO 87 % (41-73); Platelet Count 259 K/mm3 (150-400); RDW Coefficient Variation 13.2 % (11.7-14.2); RDW Standard Deviation 43.2 fL (35.1-46.3); Red Blood Cell Count 4.69 M/mm3 (4.30-5.90)
--- NOTE | 2023-05-17 04:47 | NUR ---
SHIFT SUMMARY SEE PREVIOUS NOTE. PT A&Ox4, CALLS AND COMMUNICATES NEEDS APPROPRIATELY. BP STABLE, SR-ST 80-100, DENIES CP/PRESSURE. SpO2> 92% 5L VIA NC, REPORTS INTERMITTENT SOB, WORSENING WITH ACTIVITY. PT SBA FOR TRANSFERS. WARNER CATHETER PATENT, DRAINING TO GRAVITY. CONTINENT OF BM THIS SHIFT. PT WANTING TO TALK TO PALLIATIVE CARE TODAY. NO OTHER EVENTS, WILL REPORT TO ONCOMING RN.
[2023-05-17 06:09] LABS: Albumin, Blood 3.1 g/dL (3.4-5.0); Albumin/Globulin Ratio 0.9 (0.8-1.8); Bilirubin, Total 0.4 mg/dL (0.1-1.0); Bun/Creatinine Ratio 43.1 (12.0-20.0); Calcium, Blood 8.2 mg/dL (8.5-10.1); Creatinine, Blood 1.09 mg/dL (0.60-1.20); Globulin, Blood 3.4 g/dL (2.2-4.0); Potassium, Blood 4.7 mmol/L (3.5-5.5); Total Protein, Blood 6.5 g/dL (6.4-8.2)
[2023-05-17 07:26] VITALS: BP 160/81
--- NOTE | 2023-05-17 10:48 | NUR ---
Care Conference: Met with pt and his CG Vanessa at bedside. The pt reports he is well aware that his lung function is poor, and he "may have a year left to live". The pt states his number one priority is to go home and live what life he has left. We discussed Hospice care, and both the pt and CG Vanessa were immediately on board. They both state this is "exactly" what they need for assistance, as pt does not wish to return to the hospital, and would like to have the focus be on aggressive symptom management. Annie, [employer] is following up with them, and working on getting an admission date for home hospice. She is also assisting them with a referral to the [facility] program for caregiver assistance. Dr. Sandoval would like to get pt diuresed to give him better quality of life before discharge, and pt is agreeable to wait until May 19 for discharge. Palliative will remain available. Both pt and CG verbalize appreciation for the information and plan.
[2023-05-17 12:23] VITALS: BP 151/79
[2023-05-17 15:48] VITALS: BP 160/67
--- NOTE | 2023-05-17 17:54 | NUR ---
SHIFT SUMMARY ALERT, ORIENTED, COOPERATIVE. NPO IN AM FOR CARDIOVERSION AT 1130. CARDIOVERSION WAS SUCCESSFUL, PATIENT CONVERTED TO SINUS JASON IN 40S. SUBSEQUENTLY HYPOTENSIVE FOR REST OF SHIFT DESPITE 1L NS BOLUS AND 1 DOSE OF IV FAYE-SYNEPHRINE, SEE EMAR. MILDLY SYMPTOMATIC WITH LIGHT-HEADEDNESS AND SLEEPY. OTHERWISE WAKES EASILY AND ORIENTED. MAINTAINING BEDREST UNTIL MAPS SUSTAIN ABOVE 65. TOLERATING PO FLUIDS, SALINE LOCKED. TOLERATING SNACKS. REPORTS FEELING LIKE SHE NEEDS TO HAVE A BM BUT WANTS TO WAIT AT THIS TIME. BEDPAN OFFERED. R RADIAL SITE WNL. ROOM AIR. PLAN TO RECHECK EKG IN AM.
--- NOTE | 2023-05-17 17:59 | NUR ---
SHIFT SUMMARY ALERT, ORIENTED, COOPERATIVE. 5-7 L VIA NC TO KEEP SATS ABOVE 90. ROUTINE NEBS. SOB WITH EXERTION. DRY, NON-PRODUCTIVE COUGH WITH MILD EXP WHEEZE. COARSE THROUGHOUT. TELE SR/ST. SBA WITH FWW TO BATHROOM AND RECLINER. TOLERATING ADA DIET AND FLUID RESTRICTION. BLOOD GLUCOSE COVERED PER SLIDING SCALE. TIMMY COVARRUBIAS'Kenan THIS AM. PLAN IS TO DC HOME ON HOSPICE ON SUNDAY 05/20 IV MEDICALLY STABLE. MET WITH PALLIATIVE CARE AND SOSA MAE, THIS SHIFT FOR ADVANCE CARE PLANNING.
[2023-05-17 19:46] VITALS: BP 144/70
[2023-05-18 00:10] VITALS: BP 134/71
[2023-05-18 03:22] VITALS: BP 145/90
[2023-05-18 03:53] LABS: BASOPHILS ABSOLUTE AUTO 0.04 K/mm3 (0.00-0.23); BASOPHILS PERCENT AUTO 0 % (0-2); EOSINOPHILS PERCENT AUTO 0 % (0-6); Hematocrit 45.2 % (37.0-53.0); Hemoglobin 14.4 g/dL (13.5-17.5); IMMATURE GRAN ABSOLUTE AUTO 0.24 K/mm3 (0.00-0.10); IMMATURE GRAN PERCENT AUTO 1 % (0-1); LYMPHOCYTES ABSOLUTE AUTO 0.57 K/mm3 (0.84-5.20); LYMPHOCYTES PERCENT AUTO 3 % (21-46); MONOCYTES PERCENT AUTO 7 % (4-13); Mean Corpuscular HGB 28.9 pg (26.0-34.0); Mean Corpuscular HGB Conc 31.9 g/dL (31.5-36.5); Mean Corpuscular Volume 91 fL (80-100); Mean Platelet Volume 10.7 fL (9.1-12.4); NEUTROPHILS ABSOLUTE AUTO 15.73 K/mm3 (1.96-9.15); NEUTROPHILS PERCENT AUTO 88 % (41-73); Platelet Count 288 K/mm3 (150-400); RDW Coefficient Variation 13.3 % (11.7-14.2); RDW Standard Deviation 43.8 fL (35.1-46.3); Red Blood Cell Count 4.99 M/mm3 (4.30-5.90); White Blood Cell Count 17.88 K/mm3 (4.00-11.30)
[2023-05-18 04:30] LABS: Albumin, Blood 3.2 g/dL (3.4-5.0); Albumin/Globulin Ratio 0.9 (0.8-1.8); Bilirubin, Total 0.4 mg/dL (0.1-1.0); Bun/Creatinine Ratio 43.6 (12.0-20.0); Calcium, Blood 8.4 mg/dL (8.5-10.1); Creatinine, Blood 1.17 mg/dL (0.60-1.20); Globulin, Blood 3.5 g/dL (2.2-4.0); Potassium, Blood 5.3 mmol/L (3.5-5.5); Total Protein, Blood 6.7 g/dL (6.4-8.2)
--- NOTE | 2023-05-18 04:44 | NUR ---
SHIFT SUMMARY SEE PREVIOUS NOTE. PT A&Ox4, CALLS AND COMMUNICATES NEEDS APPROPRIATELY. BP STABLE, SR-ST 70-100, DENIES CP/PRESSURE. SpO2> 92% 5L VIA NC, REPORTS INTERMITTENT SOB, WORSENING WITH ACTIVITY. PT SBA FOR TRANSFERS. CONTINENT OF URINE, URINAL w/ ASSISTANCE. NO BM THIS SHIFT. NO OTHER EVENTS, WILL REPORT TO ONCOMING RN.
[2023-05-18 07:20] VITALS: BP 136/63
[2023-05-18 11:06] VITALS: BP 141/71
[2023-05-18 15:30] VITALS: BP 140/75
--- NOTE | 2023-05-18 18:05 | NUR ---
PT SUMMARY: NO ACUTE CHANGE FOR THE SHIFT, PT WAS TITRATED DOWN TO 4L ALL SHIFT TOLERATED WELL, BREATHING TX PER RT, DESATS WITH ACTIVITY TO LOW 80'S OR PT RECOVERS BACK UP WITH NO INCREASE IN O2, EDUCATED WITH BREATHING EXERCISES. VITALS HRR SR/ST 90-100'S SBP 140'S, AFEBRILE. PT HAD A SHOWER THIS MORNING REQUESTED TO GO OUTSIDE AFTER LUNCH TIME FOR A LITTLE BIT WAS TAKEN VIA WHEELCHAIR BY PCT. PT STILL PLAN TO DC WITH HOSPICE ON SATURDAY. PT REMAINS ON FLUID RESTRICTION, PT IS COMPLIANT, DIURESING, USES URINAL FOR VOIDING. PT DENIES ANY KIND OF PAIN/DISCOMFORT. NO OTHER ISSUES ENCOUNTERED CALL LIGHTS IN REACH WILL REPORT TO ONCOMING SHIFT
[2023-05-18 19:46] VITALS: BP 135/83
[2023-05-19 00:07] VITALS: BP 135/71
[2023-05-19 03:11] VITALS: BP 134/87
[2023-05-19 05:24] LABS: BASOPHILS ABSOLUTE AUTO 0.04 K/mm3 (0.00-0.23); BASOPHILS PERCENT AUTO 0 % (0-2); EOSINOPHILS PERCENT AUTO 0 % (0-6); Hematocrit 45.3 % (37.0-53.0); Hemoglobin 14.4 g/dL (13.5-17.5); IMMATURE GRAN ABSOLUTE AUTO 0.27 K/mm3 (0.00-0.10); IMMATURE GRAN PERCENT AUTO 2 % (0-1); LYMPHOCYTES ABSOLUTE AUTO 0.59 K/mm3 (0.84-5.20); LYMPHOCYTES PERCENT AUTO 3 % (21-46); MONOCYTES ABSOLUTE AUTO 1.29 K/mm3 (0.16-1.47); MONOCYTES PERCENT AUTO 7 % (4-13); Mean Corpuscular HGB 28.6 pg (26.0-34.0); Mean Corpuscular HGB Conc 31.8 g/dL (31.5-36.5); Mean Corpuscular Volume 90 fL (80-100); Mean Platelet Volume 10.9 fL (9.1-12.4); NEUTROPHILS PERCENT AUTO 88 % (41-73); Platelet Count 275 K/mm3 (150-400); RDW Coefficient Variation 13.1 % (11.7-14.2); Red Blood Cell Count 5.03 M/mm3 (4.30-5.90); White Blood Cell Count 17.69 K/mm3 (4.00-11.30)
--- NOTE | 2023-05-19 05:43 | NUR ---
End of shift note. Pt has struggled to get any sleep this shift. He has slept for about an hour. Each time Pt attempts to lie down in the bed he struggles to maintain his O2 sats and needs to sit up to recover. Pt quickly desats with any time of exertion, slow to recover. At rest, while sitting, Pt is able to maintain on 4L NC. Pt has refused recliner and prefers to sit EOB. Dry cough. No complaints of pain. Pt reports he is very much looking forward to going home soon. Pt is able to make needs known, call light is within reach.
[2023-05-19 06:02] LABS: Albumin/Globulin Ratio 0.9 (0.8-1.8); Bilirubin, Total 0.4 mg/dL (0.1-1.0); Bun/Creatinine Ratio 53.4 (12.0-20.0); Calcium, Blood 8.2 mg/dL (8.5-10.1); Creatinine, Blood 1.16 mg/dL (0.60-1.20); Globulin, Blood 3.5 g/dL (2.2-4.0); Potassium, Blood 4.8 mmol/L (3.5-5.5); Total Protein, Blood 6.5 g/dL (6.4-8.2)
[2023-05-19 07:41] VITALS: BP 141/71
[2023-05-19 15:55] VITALS: BP 135/70
--- NOTE | 2023-05-19 18:52 | NUR ---
PT SUMMARY: NO ACUTE CHANGE FOR THE SHIFT, STATUS CHANGED TO MEDICAL NO TELE. VITALS HRR 90-110'S, SBP 130-140'S, SATS ABOVE 90% ON 4-6L OF O2, 6L WITH SLEEP, AFEBRILE. PT HAS BEEN AMBULATING VIA FWW TO THE BATHROOM, USES URINAL FOR VOIDING. WENT OUT IN THE SUN FOR 15 MNS ACCOMPANIED BY PCT. PT PLAN TO DC IN AM WITH HOSPICE CARE. PT DENIES ANY PAIN/DISCOMFORT. SOB WITH EXERTION DESATS TO 85% WITH FAST RECOVERY. NO OTHER ISSUES AT THIS TIME, SIGNIFICANT OTHER CAME BY TO VISIT AND WAS GIVEN UPDATE ABOUT PLANS FOR DISCHARGE TOMORROW. PT WAS EDUCATED ABOUT SAFETY, FIRE AND IGNITION RISK. NICOTINE PATCH REPLACED FOR THE SHIFT. WILL REPORT TO ONCOMING SHIFT
[2023-05-19 21:07] VITALS: BP 135/80
[2023-05-20 04:26] VITALS: BP 94/60
--- NOTE | 2023-05-20 05:35 | NUR ---
SHIFT SUMMARY NO ACUTE CHANGES NOTED. PT REMAINS A&O X4, VSS, SPO2 >93% VIA NC 4-6 L, PT WAS GIVEN ATIVAN & MELATONIN PER REQUEST @ BEDTIME, HE HAS BEEN ABLE TO SLEEP COMFORTABLY THROUGH MOST OF THE NIGHT, UP AT BEDSIDE TO USE URINAL, VOIDING WNL, LINEN CHANGED THIS AM DUE TO INCONTINENT EPISODE, PT DENIES PAIN, USES CALL LIGHT PRN, WCTM & REPORT TO DAY RN, CALL LIGHT IN REACH
[2023-05-20 07:20] VITALS: BP 121/66
[2023-05-20] MEDS ORDERED: LORA.5 PO (10:52)
[2023-05-20] MEDS ORDERED: INSULANI SC (10:53)
[2023-05-20] MEDS ORDERED: Nicoderm Cq1 EAC1 TOP (10:57)
[2023-05-20] MEDS ORDERED: IPRAT-ALBUT 0.5-3 ML INH (10:57)
[2023-05-20] MEDS ORDERED: FURO40 PO (10:58)
[2023-05-20] MEDS ORDERED: FLUT1DIS5 INH (10:58)
[2023-05-20] MEDS ORDERED: Prednisone10 MG PO (11:01)
--- NOTE | 2023-05-20 13:28 | NUR ---
PT DISCHARGE TO WITH HOSPICE, WITH DISCHARGE ORDERS. DISCLOSED DISCHARGE ORDERS WITH GIRLFRIEND VIA SPEAKER PHONE. HOME O2 EVAL DONE AND O2 WAS DELIVERED FOR TRANSPORT, HOSPICE NURSE CAME IN THIS MORNING FOR THE INTAKE, COPY OF DISCHARGE PAPERS PROVIDED. PRESCRIPTION FAXED TO [facility] AND [facility]. ALL BELONGINGS SENT WITH THE PT, [place] PROVIDED TRANSPORTATION VIA WHEELCHAIR.
== END 2023-05-20 13:09 | disposition hospice, home (50) | DRG 189 ==
LOC: ER 10:48 → MEDS 13:03 → PCU 13:03 → MEDS 15:49 → PCU 21:15
PROVIDERS: Family Medicine; Hospitalist; Nurse Practitioner Acute Care; Physician Assistant; ADMIT Internal Medicine
PROC: 5A09357 Assistance with Respiratory Ventilation, Less than 24 Consecutive Hours, Continuous Positive Airway Pressure (ICD-10-PCS; principal; 2023-05-10)
PROC: 0T9B70Z Drainage of Bladder with Drainage Device, Via Natural or Artificial Opening (ICD-10-PCS; 2023-05-10)
PROC: 4A133R1 Monitoring of Arterial Saturation, Peripheral, Percutaneous Approach (ICD-10-PCS; 2023-05-10)
PROC: 5A0945A Assistance with Respiratory Ventilation, 24-96 Consecutive Hours, High Flow/Velocity Cannula (ICD-10-PCS; 2023-05-13)
DX: J96.01 Acute respiratory failure with hypoxia (principal); J84.9 Interstitial pulmonary disease, unspecified; J44.1 Chronic obstructive pulmonary disease with (acute) exacerbation; J96.02 Acute respiratory failure with hypercapnia; F41.9 Anxiety disorder, unspecified; N40.0 Benign prostatic hyperplasia without lower urinary tract symptoms; G89.29 Other chronic pain; K21.9 Gastro-esophageal reflux disease without esophagitis; Z66 Do not resuscitate; Z20.822 Contact with and (suspected) exposure to COVID-19; F32.A Depression, unspecified; I11.0 Hypertensive heart disease with heart failure; I50.810 Right heart failure, unspecified; M48.02 Spinal stenosis, cervical region; I95.9 Hypotension, unspecified; E11.65 Type 2 diabetes mellitus with hyperglycemia; F10.20 Alcohol dependence, uncomplicated; E78.5 Hyperlipidemia, unspecified; F17.210 Nicotine dependence, cigarettes, uncomplicated; Z88.5 Allergy status to narcotic agent; Z88.8 Allergy status to other drugs, medicaments and biological substances; Z79.899 Other long term (current) drug therapy; Z90.2 Acquired absence of lung [part of]; Z99.81 Dependence on supplemental oxygen
CPT/HCPCS: 0241U; 36415; 36600; 71045; 71046; 80048; 80053; 81001; 82607; 82746; 82803; 82947; 83735; 83880; 85025; 85027; 87070; 87205; 93005; 93010; 93306; 94640; 94644; 94660; 94664; 94760; 94761; 94762; 96361; 96374; 97110; 97116; 97162; 97165; 97530; 97535; 99285-25; A9270; J0696; J1650; J1815; J1940; J2930; J7030